=== PATIENT | female | born 1935 ===

== ENCOUNTER 2018-02-14 09:38 | Outpatient (CLI) | payer OTHER ==
[~2018-02-14] VITALS: Ht 152.4 cm; Wt 47.6 kg
== END 2018-02-14 10:00 | disposition home or self-care (01) ==
LOC: OFIC 805 09:38
DX: H90.3 Sensorineural hearing loss, bilateral (principal); H61.23 Impacted cerumen, bilateral; H60.42 Cholesteatoma of left external ear; D21.0 Benign neoplasm of connective and other soft tissue of head, face and neck